=== PATIENT | female | born 1970 | race Caucasian/White ===

== ENCOUNTER 2020-10-28 18:14 | Emergency (ER) | payer BC, SELFPAY ==
[2020-10-28 18:15] VITALS: BP 136/76; PULSE 78; RESP 16; TEMP 35.9; O2SAT 98; BMI 29.2
--- NOTE | 2020-10-28 19:14 | ED.VIS.GEN ---
History of Present Illness Chief Complaint: Other, Pain/Inj Informant: Patient Onset: Days Context: Gradual Onset Timing: Continuous Current Severity: Moderate Maximum Severity: Moderate Narrative: The patient is an otherwise healthy 50-year-old female presents to the emergency department with right-sided rib pain. Patient states she is been having it for about 2 or 3 days. She states it hurts when she breathes or moves. She states that over the past 24 hours, she has had some loose watery diarrhea and some mild nausea. She states she had an outpatient Covid test today but does not know the results. She denies any history of pulmonary embolus. She states she has had a muscle tear in her ribs before and had a cortisone injection which helped. She states this feels different. Prior similar symptoms: No Recent Illness/Hospitalization: No Past Medical History - Allergies and Home Meds Allergies/Adverse Reactions: Allergies sulfamethoxazole [From Bactrim] Allergy (Verified 10/28/20 18:20) Itching trimethoprim [From Bactrim] Allergy (Verified 10/28/20 18:20) Itching Primary Care Physician: [facility] [Other] Prior records reviewed: Yes Past Medical History: None Surgical History: noncontributory Review of Systems General: Denies: Chills, Fever, Sweats Eyes: Denies: Visual changes - bilaterally, Diplopia ENT: Denies: Rhinorrhea, Sore throat Cardiovascular: Reports: Chest pain. Denies: Palpitations Respiratory: Denies: Dyspnea, Cough, Dyspnea on exertion Gastrointestinal: Denies: Abdominal pain, Nausea, Vomiting, Diarrhea, Melena, Hematochezia Genitourinary: Denies: Dysuria, Hematuria, Frequency Musculoskeletal: Denies: Back pain, Extremity Pain Skin: Denies: Rash, Wounds Neurological: Denies: Headache, Weakness, Numbness Physical Exam Vital Signs/Narrative: Vital Signs Temp Pulse Resp BP Pulse Ox 10/28/20 18:15 96.6 F L 78 16 136/76 H 98 Inital Vital Signs reviewed: Yes General: Well nourished, Well developed, No Acute Distress Head: Normocephalic, Atraumatic Eyes: Perrl, EOMI ENT: Moist mucous membranes, No rhinorrhea Neck: Supple, Nontender Cardiovascular: Regular rate, Regular rhythm, No murmurs Respiratory: No distress, CTA bilaterally, Chest nontender Abdomen: Soft, Nontender, Nondistended, Normal bowel sounds Back: Nontender, Normal Inspection Extremities: Nontender, No edema Skin: Normal color, No rash Neurological: Alert, Oriented x3, Cranial nerves II-XII grossly intact, Normal Strength, Normal Sensation Psychological: Normal affect, Normal Mood Diagnostic/Tx/Re-eval Clinical Impression(s) from Imaging Studies Chest X-Ray 10/28/20 19:30 IMPRESSION: Normal x-ray examination of the chest. Electronically Signed: Jack Mariee MD at 20:27 EST , Service support , Chest CTA 10/28/20 20:20 IMPRESSION: No demonstrated pulmonary embolism or arterial dissection. Peripheral blebs in the upper lobes. Bilateral old rib fractures. Electronically Signed: Pierce Brown DO at 21:29 EST Tel [phone], Service support , Abnormal Lab Results 10/28/20 10/28/20 10/28/20 19:10 19:10 19:10 WBC 9.9 RBC 3.79 L Hgb 13.3 Hct 38.8 MCV 102.4 H MCH 35.1 H MCHC 34.3 RDW Std Deviation 49.1 H RDW Coeff of Aleksandar 13.2 Plt Count 273 MPV 10.0 Immature Gran % (Auto) 0.300 Neut % (Auto) 57.0 Lymph % (Auto) 35.0 [place] % (Auto) 6.1 Eos % (Auto) 1.2 Baso % (Auto) 0.4 Absolute Neuts (auto) 5.6 Absolute Lymphs (auto) 3.46 Nucleated RBC % 0 D-Dimer Quant (PE/DVT) 0.50 H Sodium 140 Potassium 4.3 Chloride 112 H Carbon Dioxide 25.0 Anion Gap 3 L BUN 15 Creatinine 0.77 Estim Creat Clear Calc 69.90 Est GFR (MDRD) Af Amer 102 Est GFR (MDRD) Non-Af 84 BUN/Creatinine Ratio 19.5 Glucose 83 Calcium 9.2 Total Bilirubin 0.30 AST 20 ALT 22 Alkaline Phosphatase 79 Total Protein 7.0 Albumin 3.6 Globulin 3.4 Albumin/Globulin Ratio 1.1 - Medical Decision Making Patient presents with pleuritic right-sided chest pain, mild fatigue and malaise. I did obtain a Covid test. This was negative. Chest x-ray reviewed by myself shows no acute abnormalities. I did obtain a D-dimer which was mildly elevated. With her pleuritic pain, patient was sent for CTA. This shows some small blebs, but no acute abnormality. Her lab work was unremarkable. At this point, I do feel that she likely has pleurisy. Inguina treated with a short burst of steroids. She is comfortable with this plan of care will be discharged home. Impression 1. Pleurisy ED Disposition - Plan for ED Patient: Instructions: ED Pleurisy Prescriptions: Prednisone [Deltasone] 60 mg PO DAILY #15 tab Prescription Printed Referrals: [facility] [Other]
[2020-10-28 19:23] VITALS: BP 129/68; PULSE 73; RESP 15; TEMP 36.9; O2SAT 93
[2020-10-28] MEDS: 0.9% Normal Saline 1,000 ML 125 ML IV (19:27)
--- NOTE | 2020-10-28 19:30 | RAD_ITS ---
STUDY: X-RAY CHEST REASON FOR EXAM: Female, 50 years old. RIGHT RIB PAIN X3 DAYS. NO KNOWN INJURY. DIARRHEA X3 DAYS. HEADACHE. TECHNIQUE: AP portable COMPARISON: None. FINDINGS: The lungs are clear and expanded. There is no demonstrated pleural abnormality. Normal size heart. Normal mediastinum and bettye. Normal visualized pulmonary arteries. Normal visualized aortic arch and descending thoracic aorta. Normal visualized thoracic spine. Normal visualized ribs, clavicles, and shoulders. There is no demonstrated abnormality of the visualized soft tissue structures of the upper abdomen. RAD/Chest 1 View (Portable) IMPRESSION: Normal x-ray examination of the chest. Electronically Signed: Jack Mariee MD at 20:27 EST , Service support ,
[2020-10-28 19:32] LABS: Absolute Lymphocyte Count 3.46 X10^3/uL (0.83-4.51); Absolute Neutrophil Count 5.6 X10^3/uL (2.0-7.7); Basophil# 0.04 X10^3/uL; Basophil% 0.4 % (0-1); Eosinophil# 0.12 X10^3/uL; Eosinophils% 1.2 % (0-5); Hematocrit 38.8 % (37-47); Hemoglobin 13.3 g/dL (12.0-15.0); Lymphocyte # 3.46 X10^3/ul (4.0); Mean Corp Hgb Conc 34.3 g/dL (32-36); Mean Corpuscular Hgb 35.1 pg (27.0-32.0); Mean Corpuscular Volume 102.4 fL (81-99); Monocyte% 6.1 % (0-10); NRBC Flagged by Analyzer 0 % (0-5); Neutrophil # 5.63 X10^3/uL (2.7-7.7); Platelet Count 273 K/mm3 (150-450); RBC Distribution Width CV 13.2 % (11.6-14.6); RBC Distribution Width SD 49.1 fl (35.1-43.9); Red Blood Count 3.79 M/mm3 (4.2-5.4); White Blood Count 9.9 K/mm3 (4.4-11.0)
[2020-10-28 19:53] LABS: ALB/GLOB Ratio 1.1 RATIO (0.9-2.4); AST(SGOT) 20 U/L (15-37); Alanine Aminotransfer ALT/SGPT 22 U/L (13-56); Albumin, Serum 3.6 g/dL (3.2-5.0); Alkaline Phosphatase 79 U/L (45-117); Anion Gap 3 (5-15); BUN 15 mg/dL (7-18); BUN/Creat Ratio 19.5 RATIO (10-20); Calcium,Total 9.2 mg/dL (8.5-10.1); Chloride 112 mmol/L (98-107); Creatinine, Serum 0.77 mg/dL (0.55-1.02); EST Glomerular Filtration Rate 84 mL/min (>60); Est Glom Filt Rate - Afr Amer 102 mL/min (>60); Globulin 3.4 g/dL (2.2-4.2); Glucose 83 mg/dL (74-106); Potassium 4.3 mmol/L (3.5-5.1); Sodium Level 140 mmol/L (136-145)
--- NOTE | 2020-10-28 20:20 | CT_ITS ---
STUDY: CTA CHEST REASON FOR EXAM: Female, 50 years old. RT RIB PAIN X 3 DAYS WITH DIARRHEA AND HEADACHE RADIATION DOSAGE (If Supplied By Facility): CTDIvol = ( 11.93 ) mGy, DLP = ( 392.97 ) mGycm TECHNIQUE: The examination was performed with the intravenous administration of IV 75mL [id number]. Post-processing of the angiographic images was performed, with multiplanar reformation and 3D reconstruction. Individualized dose optimization techniques were used for this CT. COMPARISON: None. FINDINGS: Normal enhancement of the main pulmonary artery and right and left pulmonary arteries. Normal enhancement of the bilateral peripheral pulmonary arteries. There is no demonstrated pulmonary embolism. Normal thoracic aorta and visualized great vessels. There is no demonstrated aortic dissection. Normal heart and pericardium. Normal mediastinum. Normal hilar regions. Normal visualized trachea and bronchi. The lungs are well expanded. There are peripheral blebs in the upper lobes. Normal pleura. Normal chest wall structures. Old fracture of the right second rib. Old left fourth rib fracture. Normal visualized upper abdomen. CT/CTA Chest W/WO Contrast IMPRESSION: No demonstrated pulmonary embolism or arterial dissection. Peripheral blebs in the upper lobes. Bilateral old rib fractures. Electronically Signed: Pierce Brown DO at 21:29 EST Tel [phone], Service support ,
[2020-10-28 20:23] VITALS: BP 139/85; PULSE 74; RESP 16; TEMP 36.6; O2SAT 97
[2020-10-28 21:46] VITALS: BP 157/77; PULSE 76; RESP 16; O2SAT 94
== END 2020-10-28 21:50 | disposition home or self-care (01) ==
LOC: ED 19:58
PROVIDERS: Emergency Provider Emergency Medicine
DX: R09.1 Pleurisy (principal); Z88.1 Allergy status to other antibiotic agents; Z88.2 Allergy status to sulfonamides
CPT/HCPCS: 71045; 71275; 80053; 85025; 85379; 87040; 87426; 96360; 96361; 99284; J7030; Q9967; A4216